=== PATIENT | female | born 1950 | race Caucasian/White ===

== ENCOUNTER 2017-07-13 09:04 | Day surgery (SDC) | payer MEDICARE, BC ==
--- NOTE | 2017-06-30 14:06 | HP ---
PREOPERATIVE HISTORY AND PHYSICAL: DATE OF SURGERY/ADMISSION: 07/06/17 DATE OF OFFICE VISIT/ENCOUNTER: 06/21/17 ATTENDING SURGEON: Nichelle Packer MD. * (DICTATED BY TOMMY NIELSEN) PROCEDURE: Left ring finger excision mass. CHIEF COMPLAINT: Mass on left ring finger. HISTORY OF PRESENT ILLNESS: This is a 67-year-old female who has a painful mass on the dorsal aspect of her left ring finger that has been there for many years, but has gradually become much more bothersome. She has trouble when she wears rings and it is quite annoying. She denies any associated numbness or tingling. She does not recall any specific injury recently or remotely. X- rays show that she has some degenerative arthritis of the finger. She is interested in having the mass removed and has consented to proceed with a left ring finger excision mass. The patient has an allergy to NOVOCAIN. PAST MEDICAL HISTORY: Hypertension. PAST SURGICAL HISTORY: 1. Breast biopsy x2. 2. Tonsillectomy. CURRENT MEDICATIONS: Ibuprofen 200 mg p.r.n. ALLERGIES: 1. AMPICILLIN causes a rash 2. NOVOCAIN causes dizziness and nausea. 3. Penicillin causes a rash. FAMILY MEDICAL HISTORY: Hypertension, stroke, cancer. SOCIAL HISTORY: The patient is retired. She denies tobacco use, recreational drug use and does not drink alcohol. REVIEW OF SYSTEMS: General: Negative for fevers, chills, or night sweats. No known anesthesia problems. HEENT: Negative for headache, lightheadedness, or syncopal episodes. Integumentary: Negative for abrasions, lesions, or open wounds. Cardiothoracic: Positive for hypertension. Negative for chest pain, palpitations, or edema. Pulmonary: Negative for shortness of breath with exertion, chronic cough, COPD. GI: Negative for nausea, vomiting, diarrhea, constipation, or GERD. : Negative for nocturia, urinary frequency, urgency, history of UTIs, or kidney problems. Musculoskeletal: Positive for current complaint. Negative for chronic or intermittent back pain or history of fractures. Neurological: Negative for paresthesias, numbness, history of seizure, stroke, or epilepsy. Endocrine: Negative for diabetes and thyroid issues. Hematologic: Negative for easy bruising, anemia, excessive bleeding, or history of DVT. Infectious Disease: Negative for history of MRSA, hepatitis C, or HIV. PHYSICAL EXAMINATION GENERAL: Well-developed, well-nourished 67-year-old female in no acute distress. VITAL SIGNS: Height 5 feet tall, weight 218 pounds. Pulse rate 61, blood pressure 172/80. HEENT: Normocephalic, atraumatic. Pupils are equal, round, and reactive to light and accommodation. Extraocular movements are intact. Throat is clear. NECK: Supple. No palpable lymph nodes. PULMONARY: Lungs are clear to auscultation bilaterally. No wheezes, rales, or rhonchi. CARDIOVASCULAR: Regular rate and rhythm. S1, S2. No murmurs, rubs, or gallops. No edema. ABDOMEN: Positive bowel sounds. Soft, nontender. NEUROLOGICAL: Alert and oriented x3. Cranial nerves II through XII are intact. Sensation is intact to light touch. MUSCULOSKELETAL: On exam of her left hand, she has firm subcutaneous very mobile mass overlying the proximal phalanx of the ring finger on the dorsal side. It is minimally tender to palpation. She has full range of motion in flexion and extension. Neurovascular function is intact. IMAGING STUDIES: X-rays, AP, lateral and oblique at the left ring finger show degenerative arthritis, mostly at the PIP joint and a soft tissue mass. IMPRESSION: Left ringer finger mass. PLAN: The patient is scheduled to undergo a left ring finger excision mass with Dr. Packer on 07/13/17. The patient will return to the office 10 to 14 days postop for followup and suture removal. A prescription for Ultracet was e- scribed to the patient's pharmacy for postoperative pain management. TOMMY NIELSEN [id number]/[facility] #: [id number] JASPER
[~2017-07-13 09:04] MED LIST: Buffered Lidocaine 0.9% SYRIN* 5 ML/SYR SYRINGE INTRADERM ONE; DiMENhydriNATE IV* 50 MG/ML VIAL IV PUSH PRN; Famotidine IV* 10 MG/ML 2 ML (20 mg) IV ONE; Lidocaine 1% INJ* 10 MG/ML 30 ML SDV ONE; Morphine INJ* 2 MG/ML 1 ML CARPUJECT IV PRN; Naloxone* 0.4 MG/ML 1 ML VIAL IV PRN; PROCHLORPERAZINE INJ 5 MG/ML 2 ML VIAL IV PRN; fentaNYL* 50 MCG/ML 2 ML VIAL (100 MCG VIAL) IV PRN; oxyCODONE/Acetamin 5/325 MG* TAB PO PRN
[2017-07-13] MEDS ORDERED: fentaNYL* 50 MCG/ML 2 ML VIAL (100 MCG VIAL) ONE (09:38)
[2017-07-13] MEDS ORDERED: Midazolam* 1 MG/ML 2 ML VIAL (2 MG) ONE (09:38)
[2017-07-13] MEDS ORDERED: KETAMINE HCL* 50 MG/ML 10 ML VIAL ONE (09:38)
[2017-07-13] MEDS ORDERED: Famotidine IV* 10 MG/ML 2 ML (20 mg) ONE (09:39)
[2017-07-13] MEDS ORDERED: Propofol* 10 MG/ML 20 ML BTL IV PUSH ONE (10:42)
[2017-07-13] MEDS ORDERED: Ondansetron INJ* 2 MG/ML VIAL ONE (10:42)
[2017-07-13] MEDS ORDERED: Dexamethasone IV* 4 MG/ML 1 ML (4 MG) ONE (10:42)
[2017-07-13] MEDS ORDERED: Lidocaine 2% PF * 5 ML VIAL ONE (10:42)
[2017-07-13] MEDS ORDERED: Ketorolac INJ* 30 MG/ML 1 ML VIAL ONE (10:42)
[2017-07-13 10:57] VITALS: BP 149/88
--- NOTE | 2017-07-14 | OP ---
DATE OF OPERATION: 07/13/17 [facility] DATE OF : 52 SURGEON: Nichelle Packer MD [employer] SUPERVISOR: TOMMY Abbott ANESTHESIA: Local MAC. PRE-OP DIAGNOSIS: Left ring finger mass. POST-OP DIAGNOSIS: Left ring finger mass. OPERATIVE PROCEDURE: Left ring finger mass excision. ESTIMATED BLOOD LOSS: Zero. TOURNIQUET TIME: 5 minutes. INDICATIONS FOR PROCEDURE: Faye is a 67-year-old female with a painful mass on the dorsal aspect of her left ring finger. She presents for excision. DESCRIPTION OF PROCEDURE: The patient was brought to the operating room, was given a sedation anesthetic and a local infiltration with 10 cc of 1% plain lidocaine. The skin of her left hand and forearm was prepped and draped in the usual sterile fashion. The hand and forearm were exsanguinated and tourniquet elevated to 250 mmHg. A longitudinal incision was made centered over the mass which was easily removed. It was nonadherent to any of the underlying tissues. The wound was irrigated and the skin edges reapproximated with 4-0 nylon suture. The wound was dressed with Xeroform, 4x4, Webril and Coban. The patient tolerated the procedure well, was brought to the recovery room in good condition. [id number]/[facility] #: [id number] [facility]
== END 2017-07-13 11:20 | disposition home or self-care (01) ==
LOC: OREAST 09:04
PROVIDERS: ATTEND Orthopaedic Surgery
DX: R22.32 Localized swelling, mass and lump, left upper limb (principal); D36.10 Benign neoplasm of peripheral nerves and autonomic nervous system, unspecified; I10 Essential (primary) hypertension
CPT/HCPCS: 88304; J1100; J1885; J2250; J2405; J2704; J3010

== ENCOUNTER 2019-03-28 07:05 | Emergency (ER) | payer MEDICARE, BC ==
[2019-03-28 07:22] VITALS: BP 139/82
--- NOTE | 2019-03-28 07:44 | UC ---
Skin Complaint HPI - HPI Summary HPI Summary: LAST NIGHT PATIENT DISCOVERED A TICK ATTACHED TO HER RIGHT ANTERIOR SHOULDER. TRIED TO REMOVE IT USING AICHA DISH SOAP AND AN ALCOHOL SWAB BUT WAS UNSUCCESSFUL. SHE WAS PLAYING WITH A DOG YESTERDAY AFTERNOON AND THINKS IT MIGHT HAVE GOTTEN ON HER AT THAT TIME. DOG HAD HAD TICKS REMOVED FROM IT EARLIER IN THE DAY. - History of Current Complaint Chief Complaint: UCSkin Time Seen by Provider: 03/28/19 07:14 Stated Complaint: TICK BITE Hx Obtained From: Patient Onset/Duration: Sudden Onset, Lasting Hours, Still Present Timing: Constant Onset Severity: Mild Current Severity: Mild Pain Intensity: 0 Pain Scale Used: 0-10 Numeric Location: Discrete - RIGHT ANTERIOR SHOULDER Character: Redness Aggravating Factor(s): Nothing Alleviating Factor(s): Nothing Associated Signs & Symptoms: Positive: Negative - Allergy/Home Medications Allergies/Adverse Reactions: Allergies Allergy/AdvReac Type Severity Reaction Status Date / Time amoxicillin Allergy Rash Verified 03/28/19 07:22 Penicillins Allergy Hives Verified 03/28/19 07:22 NOVOCAINE Allergy Intermediate DIZZY, Uncoded 03/28/19 07:22 NAUSEA ampicillin Allergy Rash Uncoded 03/28/19 07:22 PMH/Surg Hx/FS Hx/Imm Hx Cardiovascular History: Hypertension - Surgical History Surgical History: Yes Surgery Procedure, Year, and Place: 3 breast biopsies, all negative LAST BX 2001. TONSILLECTOMY AND ADENIODECTOMY A CHILD. ganglion cyst - Family History Known Family History: Positive: Non-Contributory - Social History Alcohol Use: None Substance Use Type: None Smoking Status (MU): Never Smoked Tobacco Review of Systems All Other Systems Reviewed And Are Negative: Yes Constitutional: Positive: Negative Skin: Positive: Other - TICK ATTACHED Respiratory: Positive: Negative Cardiovascular: Positive: Negative Gastrointestinal: Positive: Negative Physical Exam Triage Information Reviewed: Yes Appearance: Well-Appearing, No Pain Distress, Well-Nourished Vital Signs: Initial Vital Signs Temp 96.7 F 03/28/19 07:14 Pulse 73 03/28/19 07:14 Resp 18 03/28/19 07:14 BP 139/82 03/28/19 07:14 Pulse Ox 98 03/28/19 07:14 Vital Signs Reviewed: Yes Eyes: Positive: Conjunctiva Clear ENT: Positive: Hearing grossly normal Neck: Positive: Supple Respiratory: Positive: No respiratory distress, No accessory muscle use Cardiovascular: Positive: Pulses Normal Abdomen Description: Positive: Soft Musculoskeletal: Positive: No Edema Neurological: Positive: Alert Psychological: Positive: Age Appropriate Behavior Skin: Positive: Other - TICK ATTACHED RIGHT ANTERIOR SHOULDER. NOT ALIVE, NOT ENGORGED. Negative: Rashes Course/Dx - Course Course Of Treatment: COUNSELED PT EXTENSIVELY ON LOW RISK OF ALEE LYME DISEASE FROM THIS TICK. TICK WAS NOT ENGORGED SO UNLIKELY TO HAVE BEEN ATTACHED FOR REQUISITE AMOUNT OF TIME TO TRANSMIT DISEASE. PT GIVEN A TICK TWISTER TO HELP REMOVE ANY FUTURE TICKS. KEEP THE AREA CLEAN AND BE VIGILANT OF SX OVER THE NEXT 4-6 WEEKS. PT DOES NOT MEET CRITERIA FOR PROPHYLAXIS WITH DOXY. ALL QUESTIONS ANSWERED AND PT COMFORTABLE WITH CAREFUL OBSERVATION AT HOME. - Diagnoses Provider Diagnosis: Tick bite Discharge ED - Sign-Out/Discharge Documenting (check all that apply): Patient Departure All imaging exams completed and their final reports reviewed: No Studies - Discharge Plan Condition: Stable Disposition: HOME Patient Education Materials: Tick Bite (ED) Referrals: [facility] [Provider Group] - If Needed Additional Instructions: The Infectious Disease Society of [place] (IDSA) does not generally recommend antimicrobial prophylaxis for prevention of Lyme disease after a recognized tick bite. However, in areas that are highly endemic for Lyme disease, a single dose of doxycycline may be offered to adult patients (200 mg) who are not and to children older than 8 years of age (4 mg/kg up to a maximum dose of 200 mg) when all of the following circumstances exist: CRITERIA FOR RECEIVING PROPHYLACTIC TREATMENT FOR LYME DISEASE 1) TICK ATTACHED FOR AT LEAST 36 HRS 2) TICK IS AN ADULT OR [place] DEER TICK 3) YOU LIVE IN AN AREA WHERE LYME DISEASE IS PREVALENT (i.e., [place], [place], [place], [place], [place] , [place], [place], [place], [place], [place], [place], [place], [place], [place]) 4) YOU HAVE NO CONTRAINDICATION TO THE MEDICATION (DOXYCYCLINE) 5) PROPHYLAXIS IS BEGUN WITHIN 72 HRS OF TICK REMOVAL SINCE YOU DO NOT MEET ALL THESE CRITERIA THERE IS NO NEED TO GIVE YOU PROPHYLACTIC ANTIBIOTICS. YOUR CHANCES OF DEVELOPING LYME DISEASE FROM THIS TICK ARE EXTREMELY SMALL. HOWEVER, 1 TICK MEANS THERE MAY HAVE BEEN OTHER TICKS OF WHICH YOU WEREN'T AWARE. SO BE VIGILANT OF YOUR SYMPTOMS AND DON'T HESITATE TO GET SEEN AGAIN IF YOU DEVELOP UNEXPLAINED FEVER, HEADACHE, JOINT PAIN, BODY ACHES, RASH OR ANY OTHER CONCERNING SYMPTOMS. Antibiotic treatment following a tick bite is not recommended as a means to prevent anaplasmosis, babesiosis, ehrlichiosis, or [employer] spotted fever. There is no evidence this practice is effective, and it may simply delay onset of disease. Instead, persons who experience a tick bite should be alert for symptoms suggestive of tickborne illness and consult a physician if fever, rash, headache or other symptoms of concern develop. - Billing Disposition and Condition Condition: STABLE Disposition: Home
== END 2019-03-28 07:40 | disposition home or self-care (01) ==
LOC: UCEAST 07:05
DX: S40.261A Insect bite (nonvenomous) of right shoulder, initial encounter (principal); I10 Essential (primary) hypertension; Z88.0 Allergy status to penicillin; Z88.4 Allergy status to anesthetic agent; W57.XXXA Bitten or stung by nonvenomous insect and other nonvenomous arthropods, initial encounter; Y92.9 Unspecified place or not applicable
CPT/HCPCS: 99211; G0463